=== PATIENT | male | born 2000 | race Hispanic/Latino ===

== ENCOUNTER 2021-03-12 09:01 | Emergency (ER) | payer MEDICAID, SELFPAY | END 2021-03-12 13:58 | disposition home or self-care (01) | LOC: ERS 09:01 | DX: M25.552 Pain in left hip (principal) ==

== ENCOUNTER 2022-09-25 18:05 | Emergency (ER) | payer OTHER, SELFPAY ==
[2022-09-25] MEDS ORDERED: Cyclobenzaprine 10 MG TAB ONE (19:25)
== END 2022-09-25 20:25 | disposition home or self-care (01) ==
LOC: ERS 18:05
DX: M54.6 Pain in thoracic spine (principal); F17.290 Nicotine dependence, other tobacco product, uncomplicated; V43.52XA Car driver injured in collision with other type car in traffic accident, initial encounter
CPT/HCPCS: 72072

== ENCOUNTER 2022-10-02 14:25 | Emergency (ER) | payer SELFPAY | END 2022-10-02 15:18 | disposition home or self-care (01) | LOC: ERS 14:25 | DX: K05.00 Acute gingivitis, plaque induced (principal); Z20.822 Contact with and (suspected) exposure to COVID-19; F17.290 Nicotine dependence, other tobacco product, uncomplicated | CPT/HCPCS: 99284; U0003; U0005 ==

== ENCOUNTER 2023-06-08 11:32 | Emergency (ER) | payer OTHER, SELFPAY | END 2023-06-08 13:54 | disposition home or self-care (01) | LOC: ERS 11:32 | DX: S50.811A Abrasion of right forearm, initial encounter (principal); R07.81 Pleurodynia; F17.290 Nicotine dependence, other tobacco product, uncomplicated; V89.2XXA Person injured in unspecified motor-vehicle accident, traffic, initial encounter ==